=== PATIENT | male | born 1990 | race Caucasian/White ===

== ENCOUNTER 2025-01-13 15:26 | Emergency (ER) | payer MEDICARE, SELFPAY ==
[2025-01-13] VITALS (24 sets, daily range): BP systolic 87–118; BP diastolic 58–88; BMI 19.9
[2025-01-13] MEDS: NSS 2000 ML IV (15:30)
--- NOTE | 2025-01-13 15:39 | ED.GENMED ---
History of Present Illness
General
Chief Complaint: Weakness
Source: patient and ambulance crew
Exam Limitations: none
Time Seen by Provider: 01/13/25 15:28
Nursing documentation reviewed up to this point in time: agreed with
History of Present Illness
History of Present Illness:
34-year-old male with a past medical history of muscular dystrophy who presents to the emergency department via EMS for evaluation of generalized weakness and malaise. Patient reports that symptoms have been progressive over the past 2 weeks�he
reports feeling so weak that he can barely get out of bed. He says that he has had nausea and vomiting as well as diarrhea all week. He says he has had a hacking cough and feels short of breath. He denies any chest pain. Denies any abdominal
pain. He has not noticed any objective fever but says he has shaking chills throughout the day. It sounds like he follows at [facility] for mental health and EMS was dispatched by [facility] to check on him today due to reported feeling physically very
weak. Per EMS on their arrival he was hypotensive, tachycardic, too weak to stand. He was given IV fluids and was transiently started on low-dose Levophed for blood pressure support. Chart review shows patient has 1 prior visit after an Effexor
overdose; patient denies any current overdose, denies any drug use or any changes to his medications.
Past History
Past History
ED Past Medical History: Psychiatric
ED Past Surgical History: None
Social History
Living: with family
Review of Systems
Review of Systems
All Other Systems: ROS reviewed and negative except as documented in HPI and ROS
Constitutional: Reports fatigue and chills; Denies fever
EENT: Denies sore throat or runny nose
Respiratory: Reports cough and trouble breathing
Cardiac: Denies chest pain
ABD/GI: Reports nausea, vomiting and diarrhea; Denies abdominal pain
: Denies flank pain
Musculoskeletal: Reports muscle pain; Denies neck pain or back pain
Neurological: Reports dizzy and weakness (Generally weak); Denies headache
Phy Exam
Physical Exam
Physical Exam:
General: Awake, alert; sitting in bed pale mildly ill-appearing with rigors
Head: Normocephalic, atraumatic
Eyes: Conjunctiva normal, pupils equal round and reactive to light bilaterally
Throat: Airway intact, handling secretions; patient has palatal petechia
Neck: Trachea midline, supple without meningismus, no JVD
Lungs: Patient has tachypnea but no hypoxia, diminished breath sounds at the lung bases
Heart: Tachycardia with regular rhythm, no murmurs, gallops, or rubs appreciated
Abd: Soft, non distended, nontender
Neuro: Cranial nerves grossly intact, speech fluid, generally weak but no focal weakness or numbness
Skin: Pale and somewhat moist to the touch
Extremities: Cool to touch, trace edema around the ankles
Scores
Heart Failure Risk
Heart Failure Risk Score: Not Applicable
Heart Score for Chest Pain Patients
STEMI patient?: Not applicable
Withdrawal Assessment of Alcohol
Withdrawal Assessment Completed?: Not applicable
Sepsis
Sepsis Screening
Sepsis Assessment: Septic Shock
Sepsis Screening: Lactate >2mmol/L, Lactate >/=4mmol/L, Hypotension and ARF-Creatinine >2.0
Sepsis Screen
Sepsis Screen: Septic Shock
Date: 01/13/25
Time: 21:08
Course
Orders/Labs/Results
Orders:
Orders
01/13/25 15:38
Electrocardiogram (*1) Urgent
Reason for Study: Chest Pain
EKG- Treatment ONCE
0.9% Sodium Chloride 1000 ml [Nss] 2,000 ml IV NOW STA
CR Chest Portable - 1 View Urgent
Comment:
Reason For Exam: hypotension, cough
Reason Study Needs to be Portable: Unable to Transport
01/13/25 15:44
Type+Screen Urgent
Acetaminophen Urgent
Alcohol Urgent
CPK [Creatine Phosphokinase] Urgent
Complete Blood Count/With Diff Urgent
Comprehensive Metabolic Panel Urgent
Lactate Level [Lactic Acid] Urgent
Lipase Urgent
Magnesium Urgent
PTT Urgent
Prothrombin Time Urgent
Salicylate Urgent
TSH Reflex To Free T4 Urgent
Troponin I Urgent
Blood Culture Q30M
MARTY Source: Blood/Venous
Specimen Description:
Influenza A+B Rapid Molecular Urgent
MARTY Source: Nasal Swab
Specimen Description:
01/13/25 15:54
COVID-19 Antigen Urgent
Source: Nasal Swab
Blood Culture Q30M
MARTY Source: Blood/Venous
Specimen Description:
01/13/25 16:59
Piperacillin/Tazo 3.375 Gram [Zosyn] 3.375 gram in 50 ml IV NOW
01/13/25 17:05
CT Chest/abd/pel W Iv Cont Urgent
Reason For Exam: septic shock
Vancomycin [Vancocin] 1,500 mg 0.9% Sodium Chloride 500 ml [Nss] 500 ml IV NOW
01/13/25 17:16
Lyme Progressive Urgent
Babesia Smear [Blood Parasites] Urgent
MARTY Source: Blood/Venous
Specimen Description:
01/13/25 17:29
Junk Dealer Consult Routine
Consulting Provider: Ad Jenkins
Was physician already notified: Yes
Reason for consult: shock concern septic,vs shock liver, sully, met acidosis
NEPHROLOGY CONSULT Routine
Consulting Provider: Meet Dejesus
Was physician already notified: Yes
Reason for consult: shock concern septic,vs shock liver, sully, met acidosis
01/13/25 17:30
0.9% Sodium Chloride 1000 ml [Nss] 1,000 ml IV 100 mls/hr
Sterile Water For Inj [Sterile Water For Injection 1000 ml] 1,000 ml Sodium Bicarbonate 150 meq IV 100 mls/hr
01/13/25 17:31
Direct Bilirubin Urgent
Hepatitis A IgM Antibody Urgent
Hepatitis B Core Ab, IgM Urgent
Hepatitis B Surface Antibody Urgent
Hepatitis B Surface Antigen Urgent
Hepatitis C Antibody Urgent
Venous Blood Gas Urgent
%Oxygen/Room Air: 99
01/13/25 18:15
Ammonia Urgent
Urinalysis Reflex To Culture Urgent
Date Specimen was Collected: 01/13/25
Time Specimen was Collected: 18:14
Urine Microscopic Reflex Cult Urgent
Urine Culture Urgent
MARTY Source: U
Specimen Description:
Date Specimen was Collected: 01/13/25
Time Specimen was Collected: 18:14
0.9% Sodium Chloride 1000 ml [Nss] 1,000 ml IV BOLUS
01/13/25 18:17
Drug Screen, Urine [Urine Drug Abuse Screen] Urgent
Date Specimen was Collected: 01/13/25
Time Specimen was Collected: 18:14
Venous Blood Gas Urgent
%Oxygen/Room Air: 94
01/13/25 19:01
Sodium Bicarbonate 50 meq IV NOW STA
Sodium Bicarbonate 50 meq IV NOW STA
01/13/25 19:43
Venous Blood Gas Urgent
%Oxygen/Room Air: 95%
01/13/25 19:44
Lactic Acid Stat
Abnormal Lab Results
01/13/25 01/13/25 01/13/25
15:44 17:31 18:15
WBC 13.8 H 10^3/uL
(4.8-10.8)
RBC 4.42 L 10^6/uL
(4.70-6.10)
MCHC 32.4 L g/dL
(33.0-37.0)
Plt Count 87 L 10^3/uL
(130-400)
MPV 13.2 H fL
(7.4-10.4)
Abs Immat Gran (auto) 0.1 H 10^3/uL
(0-0.05)
Absolute Neuts (auto) 11.5 H 10^3/uL
(1.4-6.5)
Absolute Lymphs (auto) 0.9 L 10^3/uL
(1.2-3.4)
Absolute Monos (auto) 1.3 H 10^3/uL
(0.1-0.6)
Immature Gran % 0.6 H %
(0-0.5)
Neutrophils % 83.4 H %
(42.2-75.2)
Lymphocytes % 6.6 L %
(20.5-51.1)
PT 53.3 H Sec
(11.4-14.6)
INR 6.12 H*
APTT 46.3 H Sec
(23.4-35.0)
VBG pH 7.15 L*
(7.32-7.43)
VBG pCO2 25 L mmHg
(35-48)
VBG pO2 63 H mmHg
(30-50)
VBG HCO3 8.7 L mmol/L
(22-27)
Sodium 131 L mmol/L
(135-145)
Potassium 5.7 H mmol/L
(3.5-5.1)
Carbon Dioxide 9 L* mmol/L
(22-30)
BUN 60 H mg/dl
(9-20)
Creatinine 2.5 H mg/dL
(0.7-1.3)
Lactic Acid 11.3 H* mmol/L
(0.7-2.0)
Calcium 6.8 L* mg/dl
(8.4-10.2)
Total Bilirubin 5.0 H mg/dl
(0.2-1.3)
Direct Bilirubin 2.6 H mg/dl
(0.0-0.4)
AST 4456 H* U/L
(17-59)
ALT 4824 H* U/L
(0-50)
Alkaline Phosphatase < 20 L U/L
(38-126)
Ammonia < 9 L umol/L
(9-30)
Creatine Kinase 68690 H U/L
(55-170)
Troponin I 0.604 H* ng/ml
Total Protein 5.7 L g/dl
(6.3-8.2)
Urine Ketones 1+ A
(Negative)
Ur Occult Blood Reflex 4+ A
(Negative)
Urine Nitrite (Reflex) Positive A
(Negative)
Urine Bilirubin 2+ A
(Negative)
Urine Urobilinogen 2+ A
(Neg - 1+)
Leukocyte Esterase Rfl 1+ A
(Negative)
Urine RBC 3-6 A /HPF
(0-2)
Urine WBC (Reflex) 11-15 A /HPF
(0-5)
Urine Bacteria (Reflex) Moderate A
(Negative)
Urine Glucose 1+ A
(Negative)
Urine Albumin (Reflex) 3+ A
(Neg - Trace)
Salicylates < 1.0 L mg/dl
(2.0-20.0)
Acetaminophen < 10 L ug/ml
(10-30)
01/13/25 01/13/25 01/13/25
18:17 19:43 19:44
WBC
RBC
MCHC
Plt Count
MPV
Abs Immat Gran (auto)
Absolute Neuts (auto)
Absolute Lymphs (auto)
Absolute Monos (auto)
Immature Gran %
Neutrophils %
Lymphocytes %
PT
INR
APTT
VBG pH 7.12 L* 7.21 L
(7.32-7.43) (7.32-7.43)
VBG pCO2 28 L mmHg 28 L mmHg
(35-48) (35-48)
VBG pO2 67 H mmHg
(30-50)
VBG HCO3 9.1 L mmol/L 11.2 L mmol/L
(22-27) (22-27)
Sodium
Potassium
Carbon Dioxide
BUN
Creatinine
Lactic Acid 8.6 H* mmol/L
(0.7-2.0)
Calcium
Total Bilirubin
Direct Bilirubin
AST
ALT
Alkaline Phosphatase
Ammonia
Creatine Kinase
Troponin I
Total Protein
Urine Ketones
Ur Occult Blood Reflex
Urine Nitrite (Reflex)
Urine Bilirubin
Urine Urobilinogen
Leukocyte Esterase Rfl
Urine RBC
Urine WBC (Reflex)
Urine Bacteria (Reflex)
Urine Glucose
Urine Albumin (Reflex)
Salicylates
Acetaminophen
01/13/25 15:44
01/13/25 15:44
Vital Signs
Initial and Last Documented VS:
Initial Vital Signs
Temp Pulse Resp BP Pulse Ox
36.9 C 103 20 88/65 99
01/13/25 15:30 01/13/25 15:30 01/13/25 15:30 01/13/25 15:30 01/13/25 15:30
Last Documented Vital Signs
Temp Pulse Resp BP Pulse Ox
36.3 C 104 19 96/67 97
01/13/25 18:26 01/13/25 21:00 01/13/25 21:00 01/13/25 21:00 01/13/25 21:00
MDM/Problems Addressed
Differential Diagnosis Includes:
Differential diagnosis includes but not limited to: Infection such as pneumonia, UTI, viral syndrome; adrenal insufficiency; thyroid dysfunction/hypothyroidism; anemia/GI bleeding; overdose/polypharmacy; CHF
MDM/Problems Addressed:
34-year-old male presents to the ER for evaluation of generalized weakness, nausea/vomiting/diarrhea, cough and shortness of breath progressive he says over the past 2 weeks. He arrived was hypotensive and tachycardic with physical exam as noted.
Large-bore IV access established by EMS�will place second IV. Send labs including a CBC and a CMP, troponin, tox screen. Will check urinalysis. Stat EKG and chest x-ray. Plan for CT abdomen pelvis. Will send lactate and blood cultures.
Vigorous fluid resuscitation to start�EMS vasopressors discontinued for now can reinitiate if needed. Reassess after the above.
Blood pressure improving with fluid resuscitation. Awaiting labs. EKG showed a left bundle branch block which is new compared to 2011. Chest x-ray reviewed by me shows no pneumonia or other acute abnormalities. I did review the radiology report
which questioned pericardial effusion given rounded appearance of heart on chest x-ray�I performed a [id number] ultrasound which showed no pericardial effusion.
Initial labs reviewed: CBC shows leukocytosis to 13.8. CMP shows SULLY with creatinine of 2.5 from baseline less than 1. Patient has markedly elevated lactate 11.3 with anion gap acidosis consistent with lactic acidosis. He has an elevated troponin
at 0.604 suspect demand in the setting of sepsis/shock�will need to trend. Cover with empiric broad-spectrum antibiotics. His initial chest x-ray showed no pneumonia. Awaiting CT abdomen. Awaiting urinalysis. Clinical reassessment blood
pressure improving with fluids continue to monitor very closely.
INR markedly elevated at 6.12 at this point suspect in the setting of sepsis. His platelet count is pending. I did add Babesia smear and Lyme's testing to above infectious testing. Discussed with hospitalist to facilitate admission pending rest
of testing.
Transaminases returned back markedly elevated greater than 4000. This combined with thrombocytopenia, markedly elevated INR suggest hepatic failure. Tylenol levels pending--he denies overdose. Added hepatitis panel. Hospitalist updated.
Case discussed with warehouse associate driver�unclear etiology at this point to his acute hepatic failure. Recommended transfer to tertiary center for care under dedicated hepatology service. Hospitalist agrees that patient should be transferred. Will
initiate transfer process to [facility]. Patient comfortable with this plan.
Discussed with hepatology and MICU attendings at [facility] [facility] [place]--accepted for transfer to MICU. Will monitor pending transport.
Discussed with MICU attending at [facility] [place]�while he is accepted for transfer they are concerned about his stability for transport, wanted additional fluids and repeat gas and will reassess.
Repeat gas slightly worse with pH 7.15 down to pH of 7.12. Bicarb infusion was initiated by hospitalist previously. [facility] and repeat gas in 30 minutes and we will reassess. He is
accepted for transfer but would like to see improving blood gas prior to transport.
Repeat blood gas improved. Discussed once again with MICU attending at [facility] [place] and at this point we will arrange for helicopter transport downtown. I spoke to the patient's sister and updated her.
CPK came back markedly elevated at 27,000 consistent with rhabdomyolysis. Updated MICU. Continue fluids. Transport pending.
*Radiology
Radiology exam reviewed: preliminary read by ED provider and radiology read reviewed
*Pulse Oximetry
SaO2: 99
Patient hypoxic: no (94%)
*EKG
Interpreted by ED Provider?: Yes
Heart Rate: 107
Rate: tachycardiac
Rhythm: sinus
Hubert: left axis deviation
Interval: long QT
QRS Pattern: left bundle branch block
Ischemia: non-specific ST changes
*Critical Care Note
Total Time (30-74mins, 75-104mins- exclusive of procedures): 91
comment:
Critical care statement: A total of 91 minutes of critical care time was provided for this patient. This includes management of unstable vital signs, evaluation of the patient at bedside, frequent reassessment, discussion with
consultants/hospitalist, and review of pertinent medical records. This time was separate from time utilized to perform any aforementioned documented procedures
Data Reviewed
Review of Other/Old Records Reveals: Labs and Records
Source: patient, records and ambulance crew
Patient Management
Discussion with other providers: Hospitalist (Discussed with hospitalist) and Soakers Supervisor (Discussed with warehouse associate driver)
Escalation/DeEscalation of care consider admission/obs:
Admission indicated--transfer to a tertiary center
ED Attending Note
-
Portions of this chart may have been created with voice recognition software.� Occasional wrong word or��sound alike� substitutions may have occurred due to the inherent limitations of voice recognition software.
Discharge Plan
Departure
Patient Disposition: Acute Care Hospital
Date of Disposition: 01/13/25
Time of Disposition: 17:09
Discharge Problem:
Septic shock, Acute hepatic failure, Rhabdomyolysis
Prescriptions:
No Action
trazodone 100 mg tablet
100 mg PO HS
prazosin 2 mg capsule
2 mg PO HS
aripiprazole 20 mg tablet
20 mg PO HS
Referrals:
VerrenardsMarge, POTTER OR CERAMIC ARTIST [Family Provider]
Hospital Transfer
Other hospital: [facility]
I certify that the patient requires transfer: Yes
Discussed case with accepting physician: Dr. Araya (medical ICU attending)
Reason for transfer: higher level of care and specialties available
Interventions
Interventions:
*Risk Screen - Suicide Last Done: 01/13/25 15:30
*General Assessment Last Done: 01/13/25 15:30
*Neglect/Abuse Screening Last Done: 01/13/25 15:30
*ED- Fall Risk Assessment Last Done: 01/13/25 15:30
ED- Cardiac Assessment Last Done: 01/13/25 15:30
ED- Neurological Assessment Last Done: 01/13/25 15:30
ED- Pulmonary Assessment Last Done: 01/13/25 15:30
Discharge Date and Time
Print Language: ICELANDIC
[2025-01-13 16:31] LABS: Hematocrit 41.0 % (39.0-52.0); Hemoglobin 13.3 g/dL (13.0-18.0); Mean Corp Hgb Conc. 32.4 g/dL (33.0-37.0); Mean Corpuscular Volume 92.8 fL (80.0-94.0); Nucleated Red Blood Cells % 0.3 % (-); Red Cell Dist. Width 14.5 % (11.5-14.5)
[2025-01-13 16:41] LABS: COVID-19 Antigen Negative (Negative)
[2025-01-13 16:47] LABS: PT 53.3 Sec (11.4-14.6)
[2025-01-13 16:48] LABS: APTT 46.3 Sec (23.4-35.0)
[2025-01-13 16:56] LABS: Troponin I 0.604 ng/ml
[2025-01-13 16:57] LABS: Albumin 3.6 g/dl (3.5-5.0); Alkaline Phosphatase < 20 U/L (38-126); Blood Urea Nitrogen 60 mg/dl (9-20); Calcium 6.8 mg/dl (8.4-10.2); Carbon Dioxide 9 mmol/L (22-30); Chloride 100 mmol/L (98-107); Estimated Creatinine Clearance 41 ml/min; Glucose 96 mg/dl (70-99); Lipase 266 U/L (23-300); Magnesium 2.1 mg/dl (1.6-2.3); Potassium 5.7 mmol/L (3.5-5.1); Sodium 131 mmol/L (135-145); Total Protein 5.7 g/dl (6.3-8.2); eGFR 34.15
[2025-01-13 17:01] LABS: INR 6.12
[2025-01-13] MEDS: ZOSYN 50 IV (17:04)
--- NOTE | 2025-01-13 17:14 | W.PN.UPDATE ---
Update Note
Progress Note Update
This note serves as an addendum to the H&P by email marketing processor JAMIE�
Ramandeep Julissa
HPI
34M HX muscular dystrophy, depression seen at ER :
- [facility] for evaluation of generalized weakness and malaise.
- progressive worsening over the past 2 weeks- he can barely get out of bed.
- nausea and vomiting as well as diarrhea all week.
- hacking cough and feels short of breath.
Denies any current overdose, denies any drug use or any changes to his medications.
HX depression follows at [facility] mental health
HX prior Effexor OD
ROS
- denies any chest pain
- denies any abdominal pain.
- shaking chills throughout the day.
Relevant VS
Temp Pulse Resp BP Pulse Ox
98.5 F 106 19 105/78 99
01/13/25 15:30 01/13/25 17:00 01/13/25 17:00 01/13/25 17:00 01/13/25 17:02
01/13/25
15:30 01/13/25
16:00
Pulse 103 105
Resp Rate 20 20
Blood pressure 88/65 93/58
SaO2 99 99
Oxygen Mode of Delivery Room air Room air
PE
Gen: awake , alert, mildly ill-appearing with rigors
HEENT:
Neck: supple
Lungs: tachypneic
Cor: RRR tachycardia
Abdomen:�Soft, non distended, nontender
ENVIRONMENTAL MANAGEMENT SPECIALIST:
MS: no edema
Relevant Data
12/26/10 12/27/10 01/13/25
06:52 06:49 15:44
WBC 13.8 H
Plt Count 177 Pending
Absolute Neuts (auto) 11.5 H
INR 6.12 H*
Potassium 3.9 5.7 H
Sodium 131 L
Chloride 108 H 100
Carbon Dioxide 26 9 L*
BUN 13 60 H
Creatinine 2.5 H
Total Bilirubin 0.1 L 5.0 H
AST 92 H 4456
ALT 207 H 4824
Alkaline Phosphatase 25 L < 20 L
Troponin I 0.604 H*
01/13/25
15:44
Salicylates < 1.0 L
Acetaminophen < 10 L
Alcohol, Quantitative None detected
01/13/25
17:31
VBG pH 7.15 L*
VBG pCO2 25 L
VBG pO2 63 H
VBG HCO3 8.7 L
Pending VBG
EKG
SINUS TACHYCARDIA
LEFT ATRIAL ENLARGEMENT
LEFT AXIS DEVIATION
LEFT BUNDLE BRANCH BLOCK
ABNORMAL ECG
WHEN COMPARED WITH ECG OF 26-Dec-2010 02:57,
LEFT ATRIAL ENLARGEMENT IS NOW PRESENT
LEFT BUNDLE BRANCH BLOCK IS NOW PRESENT
Confirmed by MD SHAHEEN, DEEPA Morel ([id number]) on 01/13/2025 4:03:09 PM
CXR
No evidence of pneumonia.
Mild to moderate enlargement of the heart with somewhat rounded configuration.
Consider possibility of pericardial effusion in the proper clinical setting, and correlate with auscultation.
CT Chest/abd/pel W Iv Cont
Moderate cardiomegaly. No pericardial effusion.
Cardiac enhancement pattern as described, possibly related to reported history of hypotension, with other possible considerations including significant elevated pulmonary artery and/or right-sided heart pressure.
Small right pleural effusion.
Posterior right lung base hypoinflation/atelectasis. Small patchy regions of airspace opacity in the right upper lobe which could represent mild pneumonitis. No dense consolidation.
Third spacing. Mild ascites.
Mild hepatomegaly. Patchy fatty infiltration.
Delayed, and prolonged nephrogram with delayed excretion of contrast material, consistent with hypotension.
Limited assessment of bowel. No bowel obstruction. Suggested circumferential wall thickening involving the ascending colon raising the possibility of colitis. No evidence of pneumatosis.
Severe symmetric intramuscular fatty atrophy/replacement of the hip girdle musculature including the gluteus muscles. There is also severe symmetric intramuscular fatty atrophy and replacement of posterior paraspinal musculature.
Last hospitalist admission:
DX: Possible drug overdose with history of suicidal ideation.
ASSESSMENT & PLAN
Pending Rx reconciliation
Shock pathophysiology ( sepsis vs. OD of Acetaminophenol Salicylates )
Associated acute multi organ failure as below
Associated Hi AG (22) metabolic acidosis, Hyperkalemia , Hypocalcemia
Acute liver failure with sever coagulopathy , hyperbilirubinemia ( AILI due to Shocked Liver vs DILI due to Acetaminophen or Salicylates )
Significant TPN elevation - suspect NMITE
Pending platelets suspect severe thrombocytopenia
SULLY with hyperkalemia
- signifcant hypoactive TME
- UDS ( refuse urine sample)
- stat VBG ( see report)
- to consider empiric Acetylcysteine gtt if POS Tylenol
- Empiric IV vanco and Zosyn
- IV NS wide open - then 120 /H
- stat CT AP by ER attd
- current MAP 88 s/p 2 L NS - trend MAP
- Urgent consult: ICU, Renal and GI
Off note : He denied OD of OTC Tylenol, salicylates or street substances use
Case dw ER attd to urgent TF to tertiary center with automation and controls instructor for acute liver failure:
DVT Px: SCD
Full code
ICU
Patient was urgently ALS ground ambulance TF to [facility] [place] @ [facility]
Unable to to air ambulance TF due to the bad weather per ER attd .
Total Critical Care Time___60__ minutes.
I was immediately available to the patient and staff. I personally examined, reviewed labs, diagnostic images/reports, interpretations, treatment plans, discussed patient care with other providers and family or caregivers (if patient is unable to
make decisions), entered orders as appropriate and documented the medical record.
[2025-01-13 17:21] LABS: ALT (SGPT) 4824 U/L (0-50); AST (SGOT) 4456 U/L (17-59)
[2025-01-13] MEDS: VANCOCIN 530 MG IV (17:30)
[2025-01-13] MEDS: NSS 1000 IV ×2 (17:33→18:53)
--- NOTE | 2025-01-13 17:37 | HPS.HSE ---
Family Physician
-
Family Physician: MILLICENT Perkins
Chief Complaint
-
Fatigue, malaise, shortness of breath, nausea vomiting and diarrhea
History of Present Illness
34-year-old male who has been living in [address] he has been sick for approximately a week with fatigue, malaise, nausea, vomiting, diarrhea, shortness of breath. He has been taking Pepcid OTC 3 times a day for the past week. He denies any
Tylenol use any [id number] allergy medications, herbal supplements, vitamins, drugs. He reports a cough with nausea vomiting fatigue and shortness of breath. Patient follows with [facility] Vaughn Frausto dispatched EMS to patient's
local mot where he was found to be hypotensive tachycardic unable to stand. EMS gave IV fluids and transient low-dose Levophed due to severe hypotension. He was transitioned to 2 L NSS bolus here in the ER. He denies headache, sore throat,
chest pain, palpitations, diarrhea, rash, urinary symptoms. He is frail appearing BMI 19.9 pale in color.
He has past medical history depression, patient reports history of abusing prescription drugs in past at age 20, Tylenol overdose 2010 treated with acetylcysteine, Narayanan's disease with mild dystrophy, active smoker.
Medical History
Past Medical History
Past Medical History: Reports Other
Past Surgical History: Reports None
Social History
Tobacco: Smoker
Alcohol: None
Drug: None
Personal: Other (Girlfriend)
Living: Homeless (Living in a [place] [address])
Employment: Not Employed
Family History
Family History: Not pertinent
Allergies / Home Medications
Allergies reflects when Allergies were last updated in [employer].
Home Medications with original date entered in [employer]
Allergy/Medication List:
Allergies
Allergy/AdvReac Type Severity Reaction Status Date / Time
No Known Allergies Allergy Verified 01/13/25 15:35
Home Medications
aripiprazole 20 mg tablet [address] [facility] 01/13/25
prazosin 2 mg capsule [address] [facility] 01/13/25
trazodone 100 mg tablet [address] [facility] 01/13/25
Review of Systems
-
History Source: Patient
A 12 point ROS was completed and negative except as noted: Yes
Constitutional: Reports Fatigue; Denies Chills
EENT: Denies Sore Throat or Runny Nose
Respiratory: Reports Cough and Trouble Breathing
Cardiac: Denies Chest Pain, Diaphoresis or Palpitations
Abdomen/GI: Reports Nausea, Vomiting and Diarrhea; Denies Constipated or Bloody Stools
: Denies Dysuria, Frequency, Flank Pain, Incontinence or Difficulty Voiding
Musculoskeletal: Denies Joint Pain or Edema
Skin: Denies Itching or Rash
Neurological: Reports Weakness (Generalized); Denies Dizzy or Headache
Endocrine: Reports No Symptoms
Hematologic/Lymphatic: Reports No Symptoms
Psych: Reports Calm
Physical Exam
Vital Signs
Vital Signs
Temp Pulse Resp BP Pulse Ox
98.5 F 106 19 105/78 99
01/13/25 15:30 01/13/25 17:00 01/13/25 17:00 01/13/25 17:00 01/13/25 17:02
Physical Exam
General: Conversant, Cachectic and Other (Pale in color); No Pain, Fever or Chills
HEENT: NormoCephalic, Anicteric, PERRLA, [place] Conjunctivae and No Ptosis
Respiratory: Clear; No Wheezes, Rales or Rhonchi
Cardiac: S1/S2 and Regular Rhythm; No Murmur, Rub, Gallop or Peripheral Edema
Breast: Deferred by me
GI: Soft, Non Tender, Non Distended, Normal Bowel Sounds and No Hepatosplenomegaly
Rectal: Deferred by Provider
Genito-urinary: Deferred by me
Musculoskeletal: No Clubbing, No Cyanosis and No Edema
Skin: Warm and Dry; No Rash or Jaundice
Neuro: AO x 3, No Motor Deficits, Cranial Nerves Intact and No Sensory Deficits; No Slurred Speech, Facial Droop, Tremors or Sedated
Psych: Calm
Laboratory Results
-
01/13/25 15:44
01/13/25 15:44
Laboratory Results
PT 53.3 Sec (11.4-14.6) H 01/13/25 15:44
INR 6.12 H* 01/13/25 15:44
APTT 46.3 Sec (23.4-35.0) H 01/13/25 15:44
Lactic Acid 11.3 mmol/L (0.7-2.0) H* 01/13/25 15:44
Total Bilirubin 5.0 mg/dl (0.2-1.3) H 01/13/25 15:44
AST 4456 U/L (17-59) H* 01/13/25 15:44
ALT 4824 U/L (0-50) H* 01/13/25 15:44
Alkaline Phosphatase < 20 U/L (38-126) L 01/13/25 15:44
Troponin I 0.604 ng/ml H* 01/13/25 15:44
Lipase 266 U/L (23-300) 01/13/25 15:44
Data Reviewed
-
Lab Data: Labs Reviewed by me
[2025-01-13 17:39] LABS: Venous Blood Gas B.E. -18.5 mmol/L (-4 to +4); Venous Blood Gas O2 Sat % 86.2 %
[2025-01-13 17:40] LABS: Acetaminophen < 10 ug/ml (10-30); Salicylate < 1.0 mg/dl (2.0-20.0)
--- NOTE | 2025-01-13 18:05 | CON.HOSP ---
Family Physician
-
Family Physician: MILLICENT Perkins
Chief Complaint
-
Nausea vomiting diarrhea x 1 week, hypotension
History of Present Illness
34-year-old male who is living at [place] [id number] with his girlfriend who states he has had nausea, vomiting, diarrhea and a hacking cough for the past week. He is a patient of [facility] called EMS to [facility] where
they found him hypotensive, tachycardic too weak to stand and pale he was given IV fluids and transient low-dose Levophed for blood pressure support. The patient denies any Tylenol use, OTC medications, herbal supplements, alcohol, drug use, abuse
of regular medications. He was converted to normal saline in the ER received 2 L with blood pressure improvement to 106 systolic. He denies headache, sore throat, fever, chills, chest pain, palpitations, abdominal pain. he has past medical
history of depression,, patient reports history of abusing prescription drugs in past at age 20, Tylenol overdose 2010 treated with acetylcysteine,, Narayanan's disease with mild dystrophy.
Medical History
Past Medical History
Past Medical History: Reports Other
Additional Past Medical History:
depression,
patient reports history of abusing prescription drugs in past at age 20
Tylenol overdose 2010 treated with acetylcysteine,
Narayanan's disease with mild dystrophy
Past Surgical History: Reports None
Social History
Tobacco: Smoker (1.5 pack/day)
Alcohol: None
Drug: None
Personal: Other (Girlfriend)
Living: Homeless ([place] [address])
Employment: Not Employed
Family History
Family History: Reviewed & Not Pertinent
Allergies / Home Medications
Allergies reflects when Allergies were last updated in [employer].
Home Medications with original date entered in [employer]
Allergy/Medication List:
Allergies
Allergy/AdvReac Type Severity Reaction Status Date / Time
No Known Allergies Allergy Verified 01/13/25 15:35
Home Medications
aripiprazole 20 mg tablet 20 mg PO [facility] 01/13/25
prazosin 2 mg capsule 2 mg PO [facility] 01/13/25
trazodone 100 mg tablet 100 mg PO [facility] 01/13/25
Review of Systems
-
History Source: Patient
A 12 point Review of Systems was completed except as noted: Yes
Constitutional: Reports Fatigue; Denies Chills
EENT: Denies Sore Throat or Runny Nose
Respiratory: Reports Trouble Breathing; Denies Cough
Cardiac: Denies Chest Pain, Diaphoresis or Palpitations
Abdomen/GI: Reports Nausea, Vomiting and Diarrhea; Denies Constipated or Bloody Stools
: Denies Dysuria, Frequency, Flank Pain, Incontinence or Difficulty Voiding
Musculoskeletal: Denies Joint Pain or Edema
Skin: Denies Itching or Rash
Neurological: Reports Weakness (Generalized); Denies Dizzy or Headache
Endocrine: Reports No Symptoms
Hematologic/Lymphatic: Reports No Symptoms
Physical Exam
Vital Signs
Vital Signs
Temp Pulse Resp BP Pulse Ox
98.5 F 106 19 105/78 99
01/13/25 15:30 01/13/25 17:00 01/13/25 17:00 01/13/25 17:00 01/13/25 17:02
Physical Exam
General: Other (Pale, cachectic); Negative Pain, Fever or Chills
HEENT: Normocephalic and PERRLA
Respiratory: Clear; Negative Wheezes or Rales
Cardiac: S1/S2 and Tachycardia (Sinus tachycardia 106 bpm); Negative Murmur, Rub or Peripheral Edema
Breast: Deferred by me
GI: Soft, Non Distended, Normal Bowel Sounds and No Hepatosplenomegaly
Rectal: Deferred by Provider
Genito-urinary: No Costovertebral Tend
Musculoskeletal: No Clubbing, No Cyanosis and No Edema
Skin: Warm and Dry; Negative Rash
Neuro: AO x 3 and No Motor Deficits; Negative Slurred Speech, Facial Droop or Tremors
Psych: Calm
Laboratory Results
-
Laboratory Results
01/13/25 15:44
01/13/25 15:44
PT 53.3 Sec (11.4-14.6) H 01/13/25 15:44
INR 6.12 H* 01/13/25 15:44
APTT 46.3 Sec (23.4-35.0) H 01/13/25 15:44
Lactic Acid 11.3 mmol/L (0.7-2.0) H* 01/13/25 15:44
Total Bilirubin 5.0 mg/dl (0.2-1.3) H 01/13/25 15:44
AST 4456 U/L (17-59) H* 01/13/25 15:44
ALT 4824 U/L (0-50) H* 01/13/25 15:44
Alkaline Phosphatase < 20 U/L (38-126) L 01/13/25 15:44
Troponin I 0.604 ng/ml H* 01/13/25 15:44
Lipase 266 U/L (23-300) 01/13/25 15:44
Data Reviewed
-
Lab Data: Labs Reviewed
Impression / Plan
-
Impression/plan:
Plan for transfer to [facility]
#Shock LIVER with poss septic shock
#History of presumed Tylenol overdose 2010 treated with acetylcysteine
#History Depression
WBC 13.8 with left shift, 98.5, pulse 106, RR 22, INR 6.12, lactic acid 11.3
BP 88/65> 105/78 status post 2 L IV NSS, continue IV NSS 100 cc/h
AST 4456, ALT 4824
- Check UA blood cultures x 2
- CXR, COVID, flu negative, acetaminophen, salicylate negative alcohol nondetected
-Check hepatitis panel
- Check UDS, Lyme/Babesia
- Consult cover marker
- IV vancomycin IV Zosyn
-Hold omeprazole, prazosin, trazodone
-Check CT chest abdomen pelvis
-
#Acute severe metabolic acidosis
VBG pH 7.15, pCO2 25, pO2 63
Bicarb 9, anion gap 22
- Bicarb drip
#SULLY due to GI losses vomiting, diarrhea past week
Creat 2.5/bun 60
IV NSS 2 L given in ER, IV NSS 100 cc/h
- Consult nephro
#Supratherapeutic INR due to shock liver
INR 6.12, platelets pending
#Hyperbilirubinemia
T. bili 5
-Check direct bili
#Hyperkalemia
K5.7 treated with 2 L IV NSS continue IV NSS 100 cc/h
EKG sinus tach 107 bpm, QTc B 523 MS
#New LBBB per EKG
#Troponin elevation likely due to shock
Troponin 0.604
- Consult cardiology
#Hypocalcemia
Calcium 6.8 corrected calcium 7.1
Currently to get IV bicarb will follow calcium
#History of Narayanan's disease with mild dystrophy
#Active smoker
1.5 pack/day
Cessation advised
#Severe protein malnutrition BMI 19.9
DVT prophylaxis
SCDs
Full code
[2025-01-13 18:10] LABS: Platelet Count 87 10^3/uL (130-400)
[2025-01-13 18:36] LABS: Urine Character Slightly Cloudy (Clear)
[2025-01-13 18:38] LABS: Venous Blood Gas B.E. -18.9 mmol/L (-4 to +4); Venous Blood Gas O2 Sat % 88.5 %
[2025-01-13] MEDS: SODIUM BICARBONATE 1150 MEQ IV (18:52)
[2025-01-13] MEDS: SODIUM BICARBONATE 50 MEQ IV ×2 (19:00)
[2025-01-13 19:01] LABS: Ammonia < 9 umol/L (9-30)
[2025-01-13 19:54] LABS: Venous Blood Gas B.E. -15.2 mmol/L (-4 to +4); Venous Blood Gas O2 Sat % 74.2 %
[2025-01-14 18:53] LABS: Hepatitis B Surface Antigen Negative (Negative)
[2025-01-14 19:10] LABS: Hepatitis C Antibody Negative (Negative)
[2025-01-16 15:38] LABS: Lyme Antibody Screen, EIA Negative (Negative)
== END 2025-01-13 22:37 | disposition short-term general hospital (02) ==
LOC: EMR 15:26
PROVIDERS: Clinical Nurse Specialist Family Health; CONSULT PHYSICIAN Internal Medicine Critical Care Medicine; CONSULT PHYSICIAN Internal Medicine Nephrology; EMERGENCY PHYSICIAN Emergency Medicine; FAMILY PHYSICIAN Nurse Practitioner Family
DX: A41.9 Sepsis, unspecified organism (principal); R65.21 Severe sepsis with septic shock; M62.82 Rhabdomyolysis; B15.9 Hepatitis A without hepatic coma; D68.9 Coagulation defect, unspecified; D69.6 Thrombocytopenia, unspecified; E43 Unspecified severe protein-calorie malnutrition; E83.51 Hypocalcemia; G71.00 Muscular dystrophy, unspecified; E87.21 Acute metabolic acidosis; E87.5 Hyperkalemia; F17.200 Nicotine dependence, unspecified, uncomplicated; I31.39 Other pericardial effusion (noninflammatory); I44.7 Left bundle-branch block, unspecified; Z68.1 Body mass index [BMI] 19.9 or less, adult; Z71.2 Person consulting for explanation of examination or test findings; Z79.01 Long term (current) use of anticoagulants
CPT/HCPCS: 99291; 96365; 96367; 96375; 96376; 71045; 71260; 74177; 80053; 80143; 80179; 80306; 81003; 81015; 82077; 82140; 82248; 82550; 82805; 83605; 83690; 83735; 84443; 84484; 85025; 85610; 85730; 86618; 86705; 86706; 86709; 86803; 86850; 86900; 86901; 87015; 87040; 87086; 87207; 87340; 87502; 87811; 93005; Q9967